=== PATIENT | female | born 1970 | race Caucasian/White ===

== ENCOUNTER 2018-11-22 05:53 | Day surgery (SDC) | payer MEDICARE ==
[2018-11-21 14:29] VITALS: BMI 29.0
[2018-11-22] MEDS ORDERED: EPINEPHrine 0.3 MG, Dextrose 50% 3 ML in Ophthalmic Irrigation Solution 500 ML IV SCH (06:00)
[2018-11-22] MEDS ORDERED: Cyclopentolate 1% Opth Drop 2 ML BOT ONE (06:15)
[2018-11-22] MEDS ORDERED: Phenylephrine 2.5% Ophth Soln 5 ML BOT ONE (06:15)
[2018-11-22] MEDS ORDERED: Fentanyl 100 MCG/2 ML VIAL ONE (06:22)
[2018-11-22] MEDS ORDERED: Midazolam HCl 2 mg/2 ml Vial ONE (06:22)
[2018-11-22] MEDS ORDERED: PROPOFOL 20 ML ONE ×2 (06:22→07:14)
[2018-11-22] MEDS ORDERED: Propofol 500 MG/50 ML VIAL ONE (07:14)
[2018-11-22] MEDS ORDERED: HYDROcodone/Acetaminophen 5/325 mg Tablet ONE (08:04)
[2018-11-22] MEDS ORDERED: Bupivacaine 10 ML VIAL ONE (11:29)
[2018-11-22] MEDS ORDERED: PROPOFOL 200 MG/20 ML VIAL ONE (11:29)
[2018-11-22] MEDS ORDERED: Tobramycin/Dexamethasone Ophth Oint 3.5 GM TUBE ONE (11:29)
[2018-11-22] MEDS ORDERED: CEFAZOLIN 1 GM VIAL ONE (11:29)
[2018-11-22] MEDS ORDERED: Lidocaine 4% PF 5 ML AMP ONE (11:29)
[2018-11-22] MEDS ORDERED: Lidocaine 1% PF 5 ML VIAL ONE (11:29)
[2018-11-22] MEDS ORDERED: Triamcinolone 40 MG/ML VIAL ONE (11:29)
--- NOTE | 2018-11-22 14:07 | OP ---
DATE OF PROCEDURE: 11/22/2018 PRINCIPAL PREOPERATIVE DIAGNOSES: 1. Vitreous hemorrhage, right eye. 2. Proliferative diabetic retinopathy, right eye. POSTOPERATIVE DIAGNOSES: 1. Vitreous hemorrhage, right eye. 2. Proliferative diabetic retinopathy, right eye. PROCEDURES PERFORMED: 1. A 25-gauge pars plana vitrectomy, right eye. 2. Endolaser panretinal photocoagulation, right eye. ESTIMATED BLOOD LOSS: None. SPECIMEN REMOVED: None. COMPLICATIONS: None. ANESTHESIA: MAC with retrobulbar block. DESCRIPTION OF PROCEDURE: The patient was identified in the preoperative holding area. The correct eye being the right eye was marked for surgery. The patient was taken to the operating room, where MAC anesthesia was induced. A retrobulbar block was administered to the right eye. The block consisted of 1:1 ratio of 4% lidocaine and 0.75% Marcaine. A total of 5 mL were administered. A standard 25-gauge pars plana vitrectomy platform was fashioned with trocars placed approximately 4 mm from limbus. The infusion was noted to be within the vitreous cavity prior to being turned on to infusion pressure of 30 mmHg. The light pipe Micro vitrector was introduced in the eye under visualization with a BIOM viewing system. A chronic moderate vitreous hemorrhage was noted, partially obscuring the view of the fundus. A careful core and peripheral shave vitrectomy were performed. 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 The vitreous overlying this area was trimmed down to relieve any anterior- posterior traction. Following vitrectomy, the Endolaser was used to provide a panretinal photocoagulation in the typical fashion with sparing of the 3 and 9 o'clock meridians. The cannulas were sequentially removed and all sclerotomies were noted to be watertight. Subconjunctival Ancef and Kenalog were injected. The patient tolerated the procedure well and was taken to the outpatient recovery area in good condition. Job ID: [id number] [facility]
== END 2018-11-22 08:25 | disposition home or self-care (01) ==
LOC: SDC 05:53
PROVIDERS: ATTEND Ophthalmology Retina Specialist
PROC: 08T43ZZ Resection of Right Vitreous, Percutaneous Approach (ICD-10-PCS; principal; 2018-11-22)
PROC: 08QE3ZZ Repair Right Retina, Percutaneous Approach (ICD-10-PCS; 2018-11-22)
DX: H43.11 Vitreous hemorrhage, right eye (principal); E11.3531 Type 2 diabetes mellitus with proliferative diabetic retinopathy with traction retinal detachment not involving the macula, right eye; Z79.84 Long term (current) use of oral hypoglycemic drugs; Z79.899 Other long term (current) drug therapy; Z88.0 Allergy status to penicillin; Z88.5 Allergy status to narcotic agent; Z88.6 Allergy status to analgesic agent; Z91.040 Latex allergy status; Z91.048 Other nonmedicinal substance allergy status; Z98.84 Bariatric surgery status
CPT/HCPCS: J0171; J0690; J2001; J2250; J2704; J3010; J3301; J3490